=== PATIENT | male | born 1980 | race Two or more races ===

== ENCOUNTER 2019-04-29 16:19 | Emergency (ER) | payer OTHER ==
[~2019-04-29] VITALS: Ht 177.8 cm; Wt 158.8 kg
[~2019-04-29 16:19] MED LIST: ALBUTEROL2.5 MG/3 M IH; AMOX1TAB12 PO; BUCALSEP SPRAY30 ML MM; GILPHEX TR TAB1 EACH PO; LEVAQUIN750 MG PO; MEDROLPACK PO; MOTRIN800 MG PO; ORPH100T PO; RAYOS5 MG PO; TUSSIN DM SYRU240 ML PO
== END 2019-04-29 20:17 | disposition home or self-care (01) ==
LOC: ER 16:19
DX: J35.01 Chronic tonsillitis (principal); B34.9 Viral infection, unspecified

== ENCOUNTER 2022-11-08 19:19 | Emergency (ER) | payer OTHER ==
[~2022-11-08] VITALS: Ht 177.8 cm; Wt 125.2 kg
[2022-11-08] MEDS ORDERED: LOSARTAN POTASS50 MG PO (19:34)
== END 2022-11-08 22:18 | disposition home or self-care (01) ==
LOC: ER 19:19
DX: J06.9 Acute upper respiratory infection, unspecified (principal); Z20.822 Contact with and (suspected) exposure to COVID-19